=== PATIENT | male | born 1960 | race Caucasian/White ===

== ENCOUNTER 2017-08-22 05:41 | Emergency (ER) | payer MEDICARE | END 2017-08-22 06:30 | disposition left against medical advice (07) | LOC: JD.ED 05:41 | DX: Z53.21 Procedure and treatment not carried out due to patient leaving prior to being seen by health care provider (principal) ==

== ENCOUNTER 2017-08-26 17:09 | Emergency (ER) | payer MEDICARE ==
[2017-08-26] MEDS ORDERED: Ondansetron 4 MG Tab.DIS PO ONE (17:50)
--- NOTE | 2017-08-26 18:50 | EDM.PDOC ---
ED HPI GENERAL MEDICAL PROBLEM - General Chief Complaint: Gastrointestinal Problem Stated Complaint: STOMA Time Seen by Provider: 08/26/17 17:31 Source of Information: Reports: Patient, RN Notes Reviewed - History of Present Illness INITIAL COMMENTS - FREE TEXT/NARRATIVE: 56-year-old male has been brought over from the clinic regarding stoma issues. He had a Colostomy done in May about 3 months ago. [place] He states that someone dropped him off at the [facility] about a week ago. He has been showing up at the clinic requesting help dressing his stoma and also requesting more supplies. He apparently was at the clinic yesterday and now again today. the clinic now sends him here not knowing what else to do for him. We are told that high school social science teacher have been involved. They may have all ready met with patient, that is not clear, a high school social science teacher is apparently going to help him with a follow-up medical appointment this coming 2 days from now. - Related Data Allergies Allergy/AdvReac Type Severity Reaction Status Date / Time chlorpromazine Allergy Rash Verified 08/26/17 17:32 [From Thorazine] Home Meds: Home Meds . [Unable to Verify Home Med List] 08/22/17 [History] Past Medical History - Past Surgical History GI Surgical History: Reports: Other (See Below) Other GI Surgeries/Procedures: stomach surgery d/t colon CA. has stoma Social & Family History - Family History Family Medical History: Noncontributory - Caffeine Use Caffeine Use: Reports: Coffee ED ROS GENERAL - Review of Systems Review Of Systems: See Below Constitutional: Denies: Fever HEENT: Reports: No Symptoms Respiratory: Denies: Shortness of Breath Cardiovascular: Denies: Chest Pain GI/Abdominal: Reports: Nausea. Denies: Abdominal Pain, Vomiting Psychiatric: Reports: Anxiety ED EXAM, GI/ABD - Physical Exam Exam: See Below General Appearance: Alert, Anxious Eyes: Bilateral: Normal Appearance Throat/Mouth: Normal Inspection Head: Atraumatic Neck: Supple Respiratory/Chest: No Respiratory Distress, Lungs Clear, Normal Breath Sounds Cardiovascular: Regular Rate, Rhythm GI/Abdominal Exam: Soft, Non-Tender, Other (Colostomy midabdomen, bag empty at time of my exam, no unusual swelling, erythema apparent). No: Guarding Extremities: Normal Inspection, Normal Range of Motion Neurological: Alert, No Motor/Sensory Deficits Psychiatric: Anxious Skin Exam: Warm, Dry, Normal Color Course - Vital Signs Last Recorded V/S: Last Vital Signs Temp 99.2 F 08/26/17 17:26 Pulse 87 08/26/17 17:26 Resp 18 08/26/17 17:26 BP 137/106 H 08/26/17 17:26 Pulse Ox 97 08/26/17 17:26 - Orders/Labs/Meds Meds: Medications Discontinued Medications Generic Name Dose Route Start Last Admin Trade Name Amado PRN Reason Stop Dose Admin Ondansetron HCl 4 mg 08/26/17 17:50 08/26/17 17:57 Zofran Odt PO 08/26/17 17:51 4 mg ONETIME ONE Administration Departure - Departure Time of Disposition: 18:48 Disposition: Home, Self-Care 01 Condition: Fair Clinical Impression: Anxiety, Colostomy care - Discharge Information Referrals: Chon Gerard PA-C [Primary Care Provider] - Forms: ED Department Discharge Additional Instructions: you have been given zofran 4 mg oral to help settle your stomach. Drink plenty of water to maintain hydration. Clear liquids and bland diet as tolerated. Continue your colostomy care as previously advised. We understand that a high school social science teacher will be helping with appointments, further direction as needed.
== END 2017-08-26 19:00 | disposition home or self-care (01) ==
LOC: JD.ED 17:09
DX: Z43.3 Encounter for attention to colostomy (principal); F41.9 Anxiety disorder, unspecified; Z88.8 Allergy status to other drugs, medicaments and biological substances
CPT/HCPCS: 99283; A9270